=== PATIENT | male | born 1950 | race Native Hawaiian/Other Pacific Islander ===

== ENCOUNTER 2020-08-08 16:09 | Outpatient (CLI) | payer OTHER | END 2020-08-08 23:58 | disposition home or self-care (01) | LOC: INF 16:09 | PROVIDERS: ATTEND Internal Medicine | DX: Z23 Encounter for immunization (principal) | CPT/HCPCS: 96372 ==

== ENCOUNTER 2020-09-05 13:58 | Outpatient (CLI) | payer OTHER | END 2020-09-05 22:01 | disposition home or self-care (01) | LOC: INF 13:58 | PROVIDERS: ATTEND Internal Medicine | DX: Z23 Encounter for immunization (principal) | CPT/HCPCS: 96372 ==